=== PATIENT | female | born 1980 | race Hispanic/Latino ===

== ENCOUNTER 2025-01-24 02:52 | Emergency (ER) | payer MEDICAID, OTHER ==
[~2025-01-24] VITALS: Ht 154.9 cm; Wt 59.0 kg
[2025-01-24 02:54] VITALS: TEMP 98.2
--- NOTE | 2025-01-24 04:00 | ERN ---
General Chief Complaint: Head Injury Stated Complaint: HEAD INJURY Time Seen by MD: 02:55 Source: patient History of Present Illness Initial Comments Patient is a healthy 44-year-old female who had a very heavy box gluer fall onto her right forehead and bridge of her nose at work. She comes to rule out a nasal fracture. Allergies: Coded Allergies: No Known Drug Allergies (Unverified Allergy, Unknown, 01/24/25) Past Medical History Past Medical History: No Pertinent History Past Surgical History: None Constitutional: (-) chills, (-) diaphoresis, (-) fever, (-) malaise, (-) weakness, (-) other documentation EENTM: (-) eye pain, (-) blurred vision, (-) tearing, (-) double vision, (-) ear pain, (-) ear discharge, (-) nose pain, (-) nose congestion, (-) throat pain, (-) Throat swelling, (-) mouth pain, (-) tooth pain, (-) mouth swelling, (-) other documentation Respiratory: (-) cough, (-) orthopnea, (-) short of breath, (-) stridor, (-) wheezing, (-) other documentation Cardiovascular: (-) chest pain, (-) edema, (-) palpitations, (-) syncope, (-) dyspnea on exertion, (-) other documentation Gastrointestinal/Abdominal: (-) nausea, (-) vomiting, (-) diarrhea, (-) abdominal pain, (-) abdominal distention, (-) constipation, (-) rectal bleeding, (-) dark stool/melena, (-) other documentation Genitourinary: (-) vaginal discharge, (-) vaginal bleeding, (-) dysuria, (-) frequency, (-) hematuria, (-) pain, (-) other documentation Musculoskeletal: (-) Neck pain, (-) back pain, (-) Flank Pain, (-) joint pain, (-) joint swelling, (-) muscle pain, (-) muscle stiffness, (-) gout, (-) other documentation Skin: (+) contusion (Right forehead contusion mild) Physical Exam General Appearance: (-) no apparent distress, (-) apparent distress, (-) mild distress, (-) moderate distress, (-) severe distress, (-) thin, (-) obese, (-) combative, (-) cachetic, (-) anxious, (-) other documentation Orientation: (+) alert, (+) oriented x 3 Head/Face Trauma: Yes (Mild contusion right forehead, no abrasions or lacerations or open wounds) Eye: bilateral eye normal inspection, bilateral eye PERRL, bilateral eye EOMI Ear, Nose, Throat: (+) hearing grossly normal, (+) normal ENT inspection, (+) moist mucous membraine Neck: (+) normal inspection, (+) supple, (+) full range of motion Respiratory: (+) chest non-tender, (+) lungs clear, (+) well ventilated Heart: (+) regular, (+) no gallop Vascular: (+) no edema, (+) normal peripheral pulse, (+) no JVD Gastrointestinal: (+) soft, (+) non-tender, (+) bowel sound present Results Laboratory and Microbiology Lab and Micro Result Laboratory Tests Test 01/24/25 03:30 Urine HCG, Qualitative NEGATIVE (NEGATIVE) MDM We will get a plain films to rule out a nasal fracture. Plain films are negative for a nasal fracture. ED Course Orders Procedure Category Date Status Time ,Urine Test LAB 01/24/25 Complete 03:18 Nasal Bones Comp 3+Vws RAD 01/24/25 Resulted 03:18 Ibuprofen 600 Mg PHA 01/24/25 Complete Tablet (Motrin) 04:30 Current Medications Medications (Trade) Dose Ordered Sig/Cecilia Route PRN Reason Start Time Stop Time Status Last Admin Dose Admin Ibuprofen (moTRIN) 600 mg ONCE ONCE PO 01/24/25 04:30 01/24/25 04:31 DC 01/24/25 04:22 Vital Signs Date Time Temp Pulse Resp B/P (MAP) Pulse Ox O2 Delivery O2 Flow Rate FiO2 01/24/25 04:59 60 18 95/45 95 Room Air* 0 21 01/24/25 02:54 98.2 65 16 111/66 99 Room Air DX & DISP Disposition: Discharge Departure Impression: Primary Impression: Blunt trauma of face Condition: Stable Additional Instructions: There are no broken bones in your nose or the area surrounding it. You can treat your pain with ibuprofen and Tylenol as well as cold compresses. Please follow-up with your primary care physician if your pain does not improve in the next few days. There are no work restrictions Referrals: NONE (PCP) CHANELL LAZCANO MD Jan 24, 2025 04:00
[2025-01-24 04:59] VITALS: BP 95/45; PULSE 60; RESP 18; O2SAT 95
--- NOTE | 2025-01-24 05:02 | HMCIMG ---
EXAM: CR Nasal Bones, 3 views. CLINICAL HISTORY: Trauma. COMPARISON: None provided. FINDINGS: No acute displaced fracture or aggressive appearing osseous lesion. The paranasal sinuses are grossly clear. Unremarkable soft tissues. IMPRESSION: No radiographic evidence of fracture. If the clinical concern persists, recommend a noncontrast CT scan of the face and nose for an optimal evaluation. /[place]
== END 2025-01-24 05:16 | disposition home or self-care (01) ==
LOC: EDH 02:52
DX: S00.83XA Contusion of other part of head, initial encounter (principal); W22.8XXA Striking against or struck by other objects, initial encounter; Y93.89 Activity, other specified; Y92.89 Other specified places as the place of occurrence of the external cause; Y99.8 Other external cause status
CPT/HCPCS: 70160; 81025; 99284